=== PATIENT | male | born 1970 | race Two or more races ===

== ENCOUNTER 2017-07-04 08:10 | Emergency (ER) | payer BC ==
[~2017-07-04] VITALS: Ht 167.6 cm; Wt 81.6 kg
[2017-07-04] MEDS ORDERED: VALACYCLOVIR HCL 500 MG TABLET PO ONE (08:45)
--- NOTE | 2017-07-04 08:50 | NUR ---
Patient discharged to home in stable conditon. Written and verbal after care instructions given to patient. Patient verbalizes understanding of instructions.
[2017-07-04] MEDS ORDERED: VALACYCLOVIR HCL 500 MG TABLET ONE (09:01)
== END 2017-07-04 08:52 | disposition home or self-care (01) ==
LOC: ER 08:13
DX: B02.9 Zoster without complications (principal)
CPT/HCPCS: A4663